=== PATIENT | female | born 1970 | race African-American/Black ===

== ENCOUNTER 2018-10-29 18:06 | Emergency (ER) | payer BC, SELFPAY ==
[2018-10-29] MEDS ORDERED: Ibuprofen 800 MG TAB ONE (20:24)
[2018-10-29] MEDS ORDERED: Adacel (T-DAP) 0.5 ML SYRINGE ONE (20:51)
--- NOTE | 2018-10-29 20:57 | RAD ---
FRONTAL AND LATERAL IMAGING OF RIGHT TIBIA/FIBULA: 10/29/18 COMPARISON: None. HISTORY: Laceration/wound. FINDINGS: There is a corticated osseous density adjacent to the tip of the lateral malleolus which may represen t a remote fracture. There is no evidence for an acute fracture or dislocation. No radiopaque foreig n body or subcutaneous gas. IMPRESSION: No acute fracture or dislocation seen. POS: OFF
== END 2018-10-29 21:26 | disposition home or self-care (01) ==
LOC: ERS 18:06
DX: S80.811A Abrasion, right lower leg, initial encounter (principal); W17.2XXA Fall into hole, initial encounter
CPT/HCPCS: 90471; 90715

== ENCOUNTER 2019-03-12 10:05 | Emergency (ER) | payer SELFPAY ==
[2019-03-12] MEDS ORDERED: HYDROcodone/Acetaminophen 10/325 mg Tablet ONE (10:37)
== END 2019-03-12 11:25 | disposition home or self-care (01) ==
LOC: ERS 10:05
DX: M54.6 Pain in thoracic spine (principal); E11.40 Type 2 diabetes mellitus with diabetic neuropathy, unspecified; F31.9 Bipolar disorder, unspecified; F17.210 Nicotine dependence, cigarettes, uncomplicated; Z79.899 Other long term (current) drug therapy; Z79.84 Long term (current) use of oral hypoglycemic drugs
CPT/HCPCS: 99283

== ENCOUNTER 2019-07-29 10:58 | Emergency (ER) | payer SELFPAY ==
[2019-07-29] MEDS ORDERED: Acetaminophen 500 MG TAB ONE (12:15)
== END 2019-07-29 12:57 | disposition home or self-care (01) ==
LOC: ERS 10:58
DX: J11.1 Influenza due to unidentified influenza virus with other respiratory manifestations (principal); E11.40 Type 2 diabetes mellitus with diabetic neuropathy, unspecified; F31.9 Bipolar disorder, unspecified; F17.210 Nicotine dependence, cigarettes, uncomplicated; Z79.01 Long term (current) use of anticoagulants; Z79.899 Other long term (current) drug therapy; Z71.6 Tobacco abuse counseling
CPT/HCPCS: 87804; 99406